=== PATIENT | female | born 1970 | race American Indian/Alaskan Native ===

== ENCOUNTER 2017-05-24 09:46 | Emergency (ER) | payer OTHER ==
[2017-05-24 11:49] LABS: Hematocrit 35.7 % (30.3-42.9); Hemoglobin 11.4 gm/dl (10.1-14.3); Mean Corpuscular HGB Conc 32 % (30-34); Mean Corpuscular Hemoglobin 25 pg (28-32); Mean Corpuscular Volume 78 fl (79-97); Platelet Count 354 K/mm3 (140-440); Red Blood Count 4.59 M/mm3 (3.65-5.03)
[2017-05-24 12:02] LABS: Alanine Aminotransferase 18 units/L (7-56); Albumin 3.9 g/dL (3.9-5); BUN/Creatinine Ratio 3; Blood Urea Nitrogen 2 mg/dL (7-17); Calcium 10.1 mg/dL (8.4-10.2); Hemolysis Index 77
[2017-05-24] MEDS ORDERED: MORPHINE IV ONE (12:13)
[2017-05-24] MEDS ORDERED: NACL 0.9% 1000 ML 1,000 ML IV ONE ×2 (12:13→14:55)
[2017-05-24] MEDS ORDERED: ZOFRAN IV ONE (12:13)
--- NOTE | 2017-05-24 12:34 | Emergency Department Report ---
ED Abdominal Pain HPI - General Chief Complaint: Abdominal Pain Stated Complaint: NAUSEA/VOMITING Time Seen by Provider: 05/24/17 12:11 Source: patient Mode of arrival: Ambulatory Limitations: No Limitations - History of Present Illness Initial Comments: 46-year-old female with a past medical history of pseudotumor cerebri, previous hysterectomy and cholecystectomy in 2012, previous gastric sleeve surgery in 2016, and previous appendectomy presents to the hospital complaints of right upper quadrant pain, nausea, and vomiting times one month. Right upper quadrant pain is intermittent, stabbing, rated 7/10 in intensity and worse with palpation. Patient's only been able to tolerate popsicles and some liquid intake over the past month. Patient unable to tolerate solid foods. She denies hematuria, hematemesis, fever, hematochezia, diarrhea, melena, or fever. In February 2017 patient had a study that did not show any leaking anastomosis. Prior to the surgery patient had persistent epigastric pain but did not have the symptoms he is having now. Her bariatric surgeon is located in [place] and she has a follow-up appointment scheduled for June 04. She called the office prior to presenting here and was told to come to the ER for IV fluids. Patient ran out of Phenergan yesterday - Related Data Previous Rx's Medication Instructions Recorded Last Taken Type Ondansetron [Zofran Odt] 4 mg PO Q8HR PRN #20 tab.rapdis 05/24/17 Unknown Rx Promethazine [Phenergan TAB] 25 mg PO Q8HR PRN #30 tab 05/24/17 Unknown Rx traMADol [Ultram 50 MG tab] 50 mg PO Q6HR PRN #20 tablet 05/24/17 Unknown Rx Allergies Allergy/AdvReac Type Severity Reaction Status Date / Time methazolamide Allergy Unknown Verified 05/24/17 11:14 [From Neptazane] ED Review of Systems ROS: Stated complaint: NAUSEA/VOMITING Other details as noted in HPI Comment: All other systems reviewed and negative Other: Constitutional: No fevers chills Eyes: No eye pain visual changes ENT: No ear pain or throat pain Neck: Denies pain Respiratory: Denies cough wheezing shortness of breath Cardiovascular: Denies chest pain, palpitations, syncope GI: As per HPI : Denies dysuria Musculoskeletal: Denies back pain, joint swelling Skin: Denies rash, lesions, erythema Neurologic: Denies headache, numbness, weakness Psychiatric: Denies suicidal ideation, hallucinations ED Past Medical Hx - Past Medical History Additional medical history: pseudo-tumor cerebei - Surgical History Hx Appendectomy: Yes Additional Surgical History: gallbladder, gastric sleave,hysterectomy - Social History Smoking Status: Never Smoker Substance Use Type: None - Medications Home Medications: Home Medications Medication Instructions Recorded Confirmed Last Taken Type Ondansetron [Zofran Odt] 4 mg PO Q8HR PRN #20 tab.rapdis 05/24/17 Unknown Rx Promethazine [Phenergan TAB] 25 mg PO Q8HR PRN #30 tab 05/24/17 Unknown Rx traMADol [Ultram 50 MG tab] 50 mg PO Q6HR PRN #20 tablet 05/24/17 Unknown Rx ED Physical Exam - General Limitations: No Limitations - Other Other exam information: General: No limitations, patient is alert in no acute distress Head exam: Atraumatic, normocephalic Eyes exam: Normal appearance ENT: Moist mucous membrane, normal oropharynx Neck exam: Normal inspection, full range of motion, no meningismus nontender Respiratory exam: Clear to auscultation bilateral, no wheezes, rales, crackles Cardiovascular: Normal rate and rhythm, normal heart sounds Abdomen: Soft, nondistended, right upper quadrant tenderness, no rebound, no guarding, normal bowel sounds Extremity: Full range of motion normal inspection no deformity Back: Normal Inspection, full range of motion, no tenderness Neurologic: Alert, oriented x3, cranial nerves intact, no motor or sensory deficit Psychiatric: normal affect, normal mood Skin: Warm, dry, intact ED Course Vital Signs 05/24/17 05/24/17 05/24/17 11:11 13:10 14:37 Temperature 99 F Pulse Rate 117 H 95 H Respiratory 18 18 19 Rate Blood Pressure 130/85 131/97 Blood Pressure [Left] O2 Sat by Pulse 100 97 Oximetry 05/24/17 05/24/17 05/24/17 15:05 15:07 15:15 Temperature Pulse Rate 102 H 103 H 103 H Respiratory 17 16 19 Rate Blood Pressure 134/91 Blood Pressure 132/90 [Left] O2 Sat by Pulse 96 97 97 Oximetry 05/24/17 05/24/17 15:31 15:45 Temperature Pulse Rate 101 H 99 H Respiratory 14 19 Rate Blood Pressure 131/76 132/88 Blood Pressure [Left] O2 Sat by Pulse 96 97 Oximetry - Reevaluation(s) Reevaluation #1: 05/24/17 15:58 Patient received morphine, Zofran, and 1 L normal saline with reduction of heart rate from 117 to 104 Patient required additional pain medication. Dilaudid 1 mg given. Additional liter ordered. Prior to completion of liter patient states she wants to go home and can no longer stay in the hospital because of other obligations and her mother keeps calling her to come back home. She was informed to her persistent heart rate in need for continued treatment for patient declines at this time. She is requesting a refill of Phenergan and tramadol. - Consultations Consultation #1: 05/24/17 15:19 Case d/w Dr Cid bariatric surgeon [facility]. reviewed ct. agrees with radiologist not acute findings. rec symptomatic tx and f/u with her surgeon ED Medical Decision Making - Lab Data Result diagrams: 05/24/17 11:34 05/24/17 11:34 Lab Results 05/24/17 05/24/17 05/24/17 Range/Units 11:34 11:34 11:34 WBC 6.7 (4.5-11.0) K/mm3 RBC 4.59 (3.65-5.03) M/mm3 Hgb 11.4 (10.1-14.3) gm/dl Hct 35.7 (30.3-42.9) % MCV 78 L (79-97) fl MCH 25 L (28-32) pg MCHC 32 (30-34) % RDW 22.0 H (13.2-15.2) % Plt Count 354 (140-440) K/mm3 Lymph % (Auto) Special Inspector Pierce % (Auto) Special Inspector Eos % (Auto) Special Inspector Baso % (Auto) Special Inspector Lymph # Special Inspector Pierce # Special Inspector Eos # Special Inspector Baso # Special Inspector Seg Neutrophils % Special Inspector Seg Neutrophils # Special Inspector Sodium 141 (137-145) mmol/L Potassium 4.1 (3.6-5.0) mmol/L Chloride 103.9 (98-107) mmol/L Carbon Dioxide 18 L (22-30) mmol/L Anion Gap 23 mmol/L BUN 2 L (7-17) mg/dL Creatinine 0.6 L (0.7-1.2) mg/dL Estimated GFR > 60 ml/min BUN/Creatinine Ratio 3 % Glucose 97 (65-100) mg/dL Calcium 10.1 (8.4-10.2) mg/dL Total Bilirubin 0.70 (0.1-1.2) mg/dL AST 28 (5-40) units/L ALT 18 (7-56) units/L Alkaline Phosphatase 82 (35-129) units/L Total Protein 7.6 (6.3-8.2) g/dL Albumin 3.9 (3.9-5) g/dL Albumin/Globulin Ratio 1.1 % Lipase 21 (13-60) units/L Urine Color (Yellow) Urine Turbidity (Clear) Urine pH (5.0-7.0) Ur Specific [place] (1.003-1.030) Urine Protein (Negative) mg/dL Urine Glucose (UA) (Negative) mg/dL Urine Ketones (Negative) mg/dL Urine Blood (Negative) Urine Nitrite (Negative) Urine Bilirubin (Negative) Urine Urobilinogen (<2.0) mg/dL Ur Leukocyte Esterase (Negative) Urine WBC (Auto) (0.0-6.0) /HPF Urine RBC (Auto) (0.0-6.0) /HPF U Epithel Cells (Auto) (0-13.0) /HPF Urine Bacteria (Auto) (Negative) /HPF 05/24/17 Range/Units 12:00 WBC (4.5-11.0) K/mm3 RBC (3.65-5.03) M/mm3 Hgb (10.1-14.3) gm/dl Hct (30.3-42.9) % MCV (79-97) fl MCH (28-32) pg MCHC (30-34) % RDW (13.2-15.2) % Plt Count (140-440) K/mm3 Lymph % (Auto) Pierce % (Auto) Eos % (Auto) Baso % (Auto) Lymph # Pierce # Eos # Baso # Seg Neutrophils % Seg Neutrophils # Sodium (137-145) mmol/L Potassium (3.6-5.0) mmol/L Chloride (98-107) mmol/L Carbon Dioxide (22-30) mmol/L Anion Gap mmol/L BUN (7-17) mg/dL Creatinine (0.7-1.2) mg/dL Estimated GFR ml/min BUN/Creatinine Ratio % Glucose (65-100) mg/dL Calcium (8.4-10.2) mg/dL Total Bilirubin (0.1-1.2) mg/dL AST (5-40) units/L ALT (7-56) units/L Alkaline Phosphatase (35-129) units/L Total Protein (6.3-8.2) g/dL Albumin (3.9-5) g/dL Albumin/Globulin Ratio % Lipase (13-60) units/L Urine Color Yellow (Yellow) Urine Turbidity Clear (Clear) Urine pH 8.0 H (5.0-7.0) Ur Specific [place] 1.008 (1.003-1.030) Urine Protein <15 mg/dl (Negative) mg/dL Urine Glucose (UA) Neg (Negative) mg/dL Urine Ketones Tr (Negative) mg/dL Urine Blood Neg (Negative) Urine Nitrite Neg (Negative) Urine Bilirubin Neg (Negative) Urine Urobilinogen < 2.0 (<2.0) mg/dL Ur Leukocyte Esterase Tr (Negative) Urine WBC (Auto) 2.0 (0.0-6.0) /HPF Urine RBC (Auto) 2.0 (0.0-6.0) /HPF U Epithel Cells (Auto) < 1.0 (0-13.0) /HPF Urine Bacteria (Auto) 1+ (Negative) /HPF - Radiology Data Radiology results: report reviewed CT abdomen and pelvis with IV contrast: No acute inflammatory process. Surgical changes. Small hiatal hernia - Medical Decision Making Ongoing right upper quadrant pain with nausea and vomiting CT shows hiatal hernia without any acute findings Labs unremarkable UA unremarkable Discussed case with surgeon Dr. Cid Follow-up recommended Will be treated with tramadol, Phenergan, and Zofran - Differential Diagnosis gastritis, cholangitis, pancreatitis, gastric sleeve leakage Critical Care Time: No Critical care attestation.: If time is entered above; I have spent that time in minutes in the direct care of this critically ill patient, excluding procedure time. ED Disposition Clinical Impression: Hx of gastric bypass, Nausea and vomiting, RUQ abdominal pain, Hiatal hernia Disposition: - TO HOME OR SELFCARE Is pt being admited?: No Does the pt Need Aspirin: No Condition: Stable Instructions: Abdominal Pain (ED), Acute Nausea and Vomiting (ED), Hiatal Hernia (ED) Additional Instructions: Take the medication as prescribed. Follow-up with the surgeon. Return if symptoms worsen. Take a copy of the CAT scan report provided to your doctor for follow-up. Prescriptions: Ondansetron [Zofran Odt] 4 mg PO Q8HR PRN #20 tab.rapdis PRN Reason: Nausea And Vomiting Promethazine [Phenergan TAB] 25 mg PO Q8HR PRN #30 tab PRN Reason: Nausea traMADol [Ultram 50 MG tab] 50 mg PO Q6HR PRN #20 tablet PRN Reason: Pain Referrals: your bariatric surgeon, [Other] - 3-5 Days Time of Disposition: 16:17
[2017-05-24 13:21] LABS: Bacteria,Urine 1+ /HPF (Negative); Bilirubin,Urine NEG (Negative); Blood,Urine NEG (Negative); Color,Urine Yellow (Yellow); Nitrite,Urine NEG (Negative); Protein,Urine <15 mg/dL mg/dL (Negative); Urobilinogen,Urine < 2.0 mg/dL (<2.0)
--- NOTE | 2017-05-24 14:43 | Cat Scan Report ---
CT ABDOMEN PELVIS WITH CONTRAST: HISTORY: Nausea and vomiting, right upper quadrant pain. COMPARISON: none. TECHNIQUE: Helical CT in 1.25mm intervals following IV contrast. Sagittal and coronal reconstructions. FINDINGS: Lung bases: 1 cm calcified granuloma is noted in the lateral right lower lobe. Otherwise the lung bases are clear. Normal heart size. Liver: Normal. Biliary system: Cholecystectomy has been performed. No biliary dilatation is appreciated. Pancreas: Normal. Spleen: Normal. Kidneys/ureters/bladder: Normal. Adrenal glands: Normal. Aorta: Normal. Intestines: No evidence for obstruction, mass or focal inflammation. Gastric sleeve surgical changes are noted and unremarkable. Small hiatal hernia. Appendix: Probable appendectomy. Pelvic viscera: Hysterectomy changes. Ascites: None. Adenopathy: None. Musculoskeletal: Normal. IMPRESSION: No acute inflammatory process is identified. Surgical changes as described. Small hiatal hernia.
[2017-05-24] MEDS ORDERED: DILAUDID IV ONE (14:55)
[2017-05-24] MEDS ORDERED: DILAUDID ONE (14:57)
[2017-05-24 15:48] VITALS: BP 132/88
== END 2017-05-24 16:40 | disposition home or self-care (01) ==
LOC: ED 09:46
DX: K44.9 Diaphragmatic hernia without obstruction or gangrene (principal); Z98.84 Bariatric surgery status; Z88.8 Allergy status to other drugs, medicaments and biological substances; Z90.49 Acquired absence of other specified parts of digestive tract; Z90.710 Acquired absence of both cervix and uterus
CPT/HCPCS: 36415; 74177; 80053; 81001; 83690; 85025; 96361; 96374; 96375; 99284; J1170; J2270; J2405; J7030; Q9967